=== PATIENT | female | born 1970 | race Caucasian/White ===

== ENCOUNTER → 2020-06-13 10:18 | Outpatient (CLI) | payer OTHER, SELFPAY ==
[2020-06-13 23:58] LABS: SARS-CoV-2 RNA PCR Positive
== END ==
PROVIDERS: PCP Family Medicine; Visit Provider Family Medicine
DX: U07.1 COVID-19 (principal)
CPT/HCPCS: C9803; U0003; U0005

== ENCOUNTER → 2020-07-09 11:55 | Outpatient (CLI) | payer OTHER, SELFPAY ==
--- NOTE | ~2020-07-09 | CT_ITS ---
EXAMINATION: CT brain wo con DATE: 07/09/2020 12:06 INDICATION: Headache. TECHNIQUE: Computed tomography (CT) of the head was performed without intravenous contrast. The mA wa s adjusted according to patient size. Iterative reconstruction technique was employed. The dose-lengt h product was 524.62 mGy-cm. COMPARISON: None FINDINGS: There is no intracranial hemorrhage, acute infarction, or abnormal intracranial mass lesion . The ventricles are normal in size. There is mild mucosal thickening in the paranasal sinuses. The o rbits are normal. The mastoid air cells are normal. IMPRESSION: 1. Normal brain. Reviewed, dictated and finalized at location B. IMPRESSION: 1. Normal brain.
== END ==
PROVIDERS: Visit Provider Family Medicine
DX: R51.9 Headache, unspecified (principal)
CPT/HCPCS: 70450

== ENCOUNTER → 2021-08-31 08:26 | Outpatient (CLI) | payer OTHER, SELFPAY ==
--- NOTE | ~2021-08-31 | MM_ITS ---
EXAMINATION: MM screening [facility] BI w dar HISTORY: Screening TECHNIQUE: Craniocaudal and mediolateral oblique 3-D tomosynthesis images were obtained and synthetic 2-D images were generated. CAD analysis was submitted and interpreted. COMPARISON: 12/03/2018 BREAST PARENCHYMAL COMPOSITION: There are scattered areas of fibroglandular density. FINDINGS: There is no evidence of suspicious mass, calcification, or architectural distortion to sugg est malignancy in either breast. There has been no suspicious interval change. IMPRESSION: 1. No mammographic evidence of malignancy. 2. Recommend routine screening mammography in one year. BI-RADS Category 1: Negative Reviewed, dictated and finalized at location A.
== END ==
PROVIDERS: PCP Obstetrics & Gynecology Gynecology; Visit Provider Obstetrics & Gynecology Gynecology
DX: Z12.31 Encounter for screening mammogram for malignant neoplasm of breast (principal)
CPT/HCPCS: 77063; 77067

== ENCOUNTER → 2021-11-09 07:24 | Outpatient (CLI) | payer OTHER, SELFPAY ==
--- NOTE | ~2021-11-09 | US_ITS ---
EXAMINATION: US transvaginal DATE: 11/09/2021 07:54 INDICATION: Endometrial hyperplasia, unspecified. Evaluate endometrial stripe. TECHNIQUE: Multiple transvaginal sonographic images of the pelvis were obtained. COMPARISON: CT abdomen and pelvis 11/17/2018 FINDINGS: Uterus: 7.5 x 3.9 x 3.2 cm. Endometrial complex measures 0.7 cm. Right Ovary: Not visualized. No adnexal mass. Left Ovary: Not visualized. No adnexal mass. There is no free fluid in the pelvis. IMPRESSION: Normal sonographic appearance of the endometrial stripe. Nonvisualization of the bilater al ovaries. Reviewed, dictated and finalized at location K. IMPRESSION: Normal sonographic appearance of the endometrial stripe. Nonvisual ization of the bilateral ovaries.
== END ==
PROVIDERS: PCP Family Medicine; Visit Provider Obstetrics & Gynecology Gynecology
DX: N85.00 Endometrial hyperplasia, unspecified (principal)
CPT/HCPCS: 76830

== ENCOUNTER 2022-05-22 08:00 | Outpatient (NON) | payer OTHER, SELFPAY | END 2022-05-22 08:01 | disposition home or self-care (01) | LOC: ANHLAB 05-23 09:00 | PROVIDERS: PCP Family Medicine; Visit Provider Internal Medicine Gastroenterology | DX: D12.5 Benign neoplasm of sigmoid colon (principal) | CPT/HCPCS: 88305 ==

== ENCOUNTER 2022-05-22 10:17 | Day surgery (SDC) | payer OTHER, SELFPAY ==
[2021-10-22 08:45] VITALS: BMI 33.7
[2022-03-06 11:31] VITALS: BMI 31.2
[2022-05-12 14:17] VITALS: BMI 31.6
--- NOTE | 2022-05-21 16:44 | PM.HPGS ---
History of Present Illness History of Present Illness Consent: Risks, benefits, and alternatives have been discussed and questions answered. Patient agrees to proceed with procedure. Chief complaint: Neoplasm Screening Narrative: Delia Garner is a 52 year old female Referred for colon cancer screening. Review of Systems Review of Systems: All systems reviewed & are unremarkable except as noted in HPI and below PMFSH Past Medical History Medical History Acute bronchitis Ankle pain, left Anxiety Arthritis BMI 31.0-31.9,adult Bronchitis Chronic depression Colitis COVID-19 (06/13/20) 02/12/22 COVID-19 (02/11/22) 2nd episode Depression Encounter for screening colonoscopy Encounter for wellness examination in adult Endometriosis GERD (gastroesophageal reflux disease) HLD (hyperlipidemia) Hypothyroidism Hypothyroidism, unspecified Mixed hyperlipidemia Total cholesterol 222, triglycerides 200, HDL 49, LDL 139 on 12/06/2021. Obesity (BMI 30.0-34.9) Osteoarthritis involving multiple joints on both sides of body Pulmonary embolism Seasonal allergic rhinitis Tension headache, chronic Type 2 diabetes mellitus with hyperglycemia (11/15/21) Hemoglobin A1c 9.1 on 11/15/2021. Fasting glucose 155 with urine microalbumin ratio normal at 6 on 12/06/2021. Worsening headaches Surgical History Surgical History History of appendectomy History of cholecystectomy Family History Family History Father Alcoholism Cancer Mother Diabetes mellitus Grandparent Hypertension Grandparent Hypertension Social History Social History Smoking status: Never smoker Alcohol intake: never Alcohol use details: wine very rarely Substance use: never Substance use type: does not use Lack of Transportation: No Lack of Food: Never True Current Housing: I Have Housing Concerned About Future Housing: No Difficulty Paying Gas/Electric Bills: No Difficulty Paying for Meds: No Currently Unemployed: No Education: High School Diploma/GED Difficulty w/ Childcare or Family Care: No Living arrangements: with family Gender identity (if verbalized by the patient): Female Spiritual care concerns: No Meds Home Medications and Allergies Home Medications Medication Instructions Recorded Confirmed Type fluoxetine 40 mg capsule 40 mg PO DAILY 03/14/19 05/22/22 History levothyroxine 150 mcg tablet 150 mcg PO DAILY 03/14/19 05/22/22 History metformin 500 mg tablet,extended 1,000 mg PO BID #120 tabs 11/28/21 05/22/22 Rx release 24 hr cholecalciferol (vitamin D3) 125 125 mcg PO DAILY 03/03/22 05/22/22 History mcg (5,000 unit) capsule progesterone micronized 200 mg 200 mg DAILY 03/06/22 05/22/22 History capsule Allergies Allergy/AdvReac Type Severity Reaction Status Date / Time Penicillins Allergy Mild rash Verified 05/22/22 10:45 amoxicillin Allergy Unknown Rash Verified 05/22/22 10:45 erythromycin base Allergy Unknown Rash Verified 05/22/22 10:45 ERYTHROMYCIN ETHYLSUCCINATE Allergy Mild Rash Uncoded 05/22/22 10:45 (Generic Allergy) Exam Const: General: alert Orientation/consciousness: patient oriented x3 Resp: Auscultation: clear to auscultation bilaterally Cardio: Rhythm: regular rhythm GI: GI Palp: Yes Soft to palpation and No Tenderness to palpation present (GI) Neuro: General: patient oriented x3 Assessment and Plan Assessment and plan (1) Encounter for screening colonoscopy: Code(s): Z12.11 - Encounter for screening for malignant neoplasm of colon Status: Acute Assessment and Plan: Colonoscopy with possible biopsy or polypectomy or cautery or injection of substances.
[2022-05-22 10:45] VITALS: BP 144/83; PULSE 96; RESP 20; TEMP 36.8; O2SAT 99
[2022-05-22 11:04] LABS: Glucose Point of Care 184 mg/dl (65-105)
--- NOTE | 2022-05-22 11:58 | WPDANESEPPF ---
Anes - Initial Pre Proc Eval Procedure: Operation Date: 05/22/22 12:00 Proposed Procedures p Screening Colonoscopy - Chapito Bennett MD Date/Time: 05/22/22 11:58 Surgeon: Chapito Bennett MD Pre Op Diagnosis: Neoplasm Screening Patient Data Age: 52 Gender: F Height: 1.6 m Weight: 78.1 kg Allergies Allergy/AdvReac Type Severity Reaction Status Date / Time Penicillins Allergy Mild rash Verified 05/22/22 10:45 amoxicillin Allergy Unknown Rash Verified 05/22/22 10:45 erythromycin base Allergy Unknown Rash Verified 05/22/22 10:45 ERYTHROMYCIN ETHYLSUCCINATE Allergy Mild Rash Uncoded 05/22/22 10:45 (Generic Allergy) Home Medications Medication Instructions Recorded Confirmed Type fluoxetine 40 mg capsule 40 mg PO DAILY 03/14/19 05/22/22 History levothyroxine 150 mcg tablet 150 mcg PO DAILY 03/14/19 05/22/22 History metformin 500 mg tablet,extended 1,000 mg PO BID #120 tabs 11/28/21 05/22/22 Rx release 24 hr cholecalciferol (vitamin D3) 125 125 mcg PO DAILY 03/03/22 05/22/22 History mcg (5,000 unit) capsule progesterone micronized 200 mg 200 mg DAILY 03/06/22 05/22/22 History capsule Laboratory Tests 05/22/22 10:58 POC Capillary Glucose 184 mg/dl H mg/dl (65-105) Patient hx anesthesia problems: none Family hx anesthesia problems: none Results Review: All pre-operative results and documents have been reviewed as part of the pre-operative evaluation. [facility] Past Medical History Medical History Acute bronchitis Ankle pain, left Anxiety Arthritis BMI 31.0-31.9,adult Bronchitis Chronic depression Colitis COVID-19 (06/13/20) 02/12/22 COVID-19 (02/11/22) 2nd episode Depression Encounter for screening colonoscopy Encounter for wellness examination in adult Endometriosis GERD (gastroesophageal reflux disease) HLD (hyperlipidemia) Hypothyroidism Hypothyroidism, unspecified Mixed hyperlipidemia Total cholesterol 222, triglycerides 200, HDL 49, LDL 139 on 12/06/2021. Obesity (BMI 30.0-34.9) Osteoarthritis involving multiple joints on both sides of body Pulmonary embolism Seasonal allergic rhinitis Tension headache, chronic Type 2 diabetes mellitus with hyperglycemia (11/15/21) Hemoglobin A1c 9.1 on 11/15/2021. Fasting glucose 155 with urine microalbumin ratio normal at 6 on 12/06/2021. Worsening headaches Surgical History Surgical History History of appendectomy History of cholecystectomy Family History Family History Father Alcoholism Cancer Mother Diabetes mellitus Grandparent Hypertension Grandparent Hypertension Social History Social History Smoking status: Never smoker Alcohol intake: never Alcohol use details: wine very rarely Substance use: never Substance use type: does not use Lack of Transportation: No Lack of Food: Never True Current Housing: I Have Housing Concerned About Future Housing: No Difficulty Paying Gas/Electric Bills: No Difficulty Paying for Meds: No Currently Unemployed: No Education: High School Diploma/GED Difficulty w/ Childcare or Family Care: No Living arrangements: with family Gender identity (if verbalized by the patient): Female Spiritual care concerns: No Anes - Eval Final PreProcedure Day of Procedure 05/22/22 11:58 Patient weight: obese Heart: regular rate and rhythm Lungs: clear to auscultation Airway: Mallampati scale class II Neurological: alert and oriented Last oral intake: >/= 8 hours ASA classification: III Emergent: no Anesthetic plan: proceed Anesthesia type and monitoring: general GIVS and standard monitoring Results Review: All pre-operative results and documents have been reviewed as part of the pre-operative evaluation.
[2022-05-22] MEDS: LACTATED RINGERS 1,000 ML 150 ML IV CONT (12:00)
[2022-05-22 12:23] VITALS: BP 119/76; PULSE 80; RESP 16; O2SAT 96
[2022-05-22 12:33] VITALS: BP 125/73; PULSE 66; RESP 14; O2SAT 98
--- NOTE | 2022-05-22 13:27 | WPDANESPN ---
Anes - Prog Note Post-Op Date/Time: 05/22/22 13:27 Cardiovascular status: normal Respiratory status: normal Airway patency: baseline Mental status: baseline Post-Op hydration status: normal Vital Signs: Last Vital Signs Temp 36.8 C 05/22/22 10:45 Pulse 66 05/22/22 12:33 Resp 14 05/22/22 12:33 BP 125/73 05/22/22 12:33 Pulse Ox 98 05/22/22 12:33 O2 Del Method Room Air 05/22/22 12:33 Pain Score (VAS): 0 I/O: Intake & Output 05/21/22 05/22/22 05/22/22 23:59 07:59 15:59 Intake Total 600 Balance 600 05/22/22 10:58 POC Capillary Glucose 184 H Patient Feedback: Patient satisfied with anesthetic care.
== END 2022-05-22 13:05 | disposition home or self-care (01) ==
PROVIDERS: PCP Family Medicine; Visit Provider Internal Medicine Gastroenterology
PROC: 0DJD8ZZ Inspection of Lower Intestinal Tract, Via Natural or Artificial Opening Endoscopic (ICD-10-PCS; CPT 45378; principal; 2022-05-22 12:00)
DX: Z12.11 Encounter for screening for malignant neoplasm of colon (principal)
CPT/HCPCS: 45385

== ENCOUNTER 2022-08-04 15:18 | Outpatient (CLI) | payer OTHER, SELFPAY ==
--- NOTE | 2022-08-04 16:11 | ECG_ITS ---
Measurements Intervals [place] Rate: 83 P: 26 HI: 154 QRS: 56 QRSD: 94 T: 71 QT: 374 QTc: 440 Interpretive Statements SINUS RHYTHM NORMAL ECG COMPARED TO ECG 03/14/2019 02:47:55 NO SIGNIFICANT CHANGES Electronically Signed On 08-04-2022 20:26:36 CDT by Shakeel Shaw D.O.
== END 2022-08-04 15:19 | disposition home or self-care (01) ==
LOC: ANHCARD 15:20
PROVIDERS: PCP Family Medicine; Visit Provider Nurse Practitioner Family
DX: E03.9 Hypothyroidism, unspecified (principal); R07.9 Chest pain, unspecified; R42 Dizziness and giddiness
CPT/HCPCS: 93005

== ENCOUNTER → 2022-12-08 17:43 | Outpatient (CLI) | payer OTHER, SELFPAY ==
--- NOTE | ~2022-12-08 | XR_ITS ---
Right Knee Technique: AP, lateral, and oblique views were obtained. Clinical History: Pain Findings: No fracture or dislocation is seen. Osseous alignment is anatomic. Joint spaces are preserv ed without degenerative or erosive change. Soft tissues are unremarkable. No joint effusion is seen. Impression: Unremarkable right knee radiographs. Reviewed, dictated and finalized at location . Impression: Unremarkable right knee radiographs.
--- NOTE | ~2022-12-08 | XR_ITS ---
Left ankle Technique: AP, oblique, and lateral views were obtained. Clinical History: Pain Findings: No acute fracture or dislocation is seen. There are 2 orthopedic screws in the distal tibia , as well as an orthopedic roque within the distal fibula.. There is probable mild degenerative change of the tibiotalar joint, but alignment overall at the ankle mortise is anatomic. Soft tissues are ot herwise unremarkable. Impression: No acute fracture or dislocation. Prior orthopedic surgery at the distal tibia and distal fibula, as detailed above. Mild degenerative change at the tibiotalar joint, possibly posttraumatic in nature. Reviewed, dictated and finalized at location M. Impression: No acute fracture or dislocation. Prior orthopedic surgery at the distal tibia and distal fibula, as detailed abo ve. Mild degenerative change at the tibiotalar joint, possibly posttraumatic in mac ure.
== END ==
PROVIDERS: PCP Family Medicine; Visit Provider Family Medicine
DX: M25.572 Pain in left ankle and joints of left foot (principal); M25.561 Pain in right knee; G89.29 Other chronic pain
CPT/HCPCS: 73564; 73610

== ENCOUNTER → 2022-12-13 08:16 | Outpatient (CLI) | payer OTHER, SELFPAY ==
--- NOTE | ~2022-12-13 | US_ITS ---
EXAMINATION: US transvaginal DATE: 12/13/2022 08:41 INDICATION: Postmenopausal bleeding Comparison:Ultrasound dated 11/09/2021 TECHNIQUE: Multiple transabdominal and endovaginal sonographic images of the pelvis performed. FINDINGS: The uterus measures 5.7 x 2.9 x 3 cm. The endometrial complex measures 4.4 mm. The ovaries are not visualized. There is no free fluid in the pelvis. There are no abnormal masses seen on either side. IMPRESSION: 1. Thickened endomtrial complex. The differential diagnosis includes endometrial hyperplasia, polyp a nd carcinoma. Biopsy is recommended. Reviewed, dictated and finalized at location A. IMPRESSION: 1. Thickened endomtrial complex. The differential diagnosis includes endometria l hyperplasia, polyp and carcinoma. Biopsy is recommended.
== END ==
PROVIDERS: PCP Obstetrics & Gynecology Gynecology; Visit Provider Obstetrics & Gynecology Gynecology
DX: N95.0 Postmenopausal bleeding (principal)
CPT/HCPCS: 76830

== ENCOUNTER → 2023-03-14 11:25 | Outpatient (CLI) | payer OTHER, SELFPAY ==
--- NOTE | ~2023-03-14 | MM_ITS ---
EXAMINATION: MM screening [facility] BI w dar HISTORY: Screening mammogram TECHNIQUE: Craniocaudal and mediolateral oblique 3-D tomosynthesis images were obtained and synthetic 2-D images were generated. CAD analysis was submitted and interpreted. COMPARISON: 08/31/2021, 12/03/2018 bilateral screening mammogram examinations BREAST PARENCHYMAL COMPOSITION: There are scattered areas of fibroglandular density. FINDINGS: There is no evidence of suspicious mass, calcification, or architectural distortion to sugg est malignancy in either breast. There has been no suspicious interval change. IMPRESSION: 1. No mammographic evidence of malignancy. 2. Recommend routine screening mammography in one year. BI-RADS Category 1: Negative Reviewed, dictated and finalized at location A. SETTER
== END ==
PROVIDERS: PCP Nurse Practitioner; Visit Provider Nurse Practitioner
DX: Z12.31 Encounter for screening mammogram for malignant neoplasm of breast (principal)
CPT/HCPCS: 77063; 77067

== ENCOUNTER 2024-05-28 08:01 | Outpatient (CLI) | payer OTHER, SELFPAY ==
--- NOTE | ~2024-05-28 | MM_ITS ---
EXAMINATION: MM screening [facility] BI w dar HISTORY: Screening mammogram TECHNIQUE: Craniocaudal and mediolateral oblique 3-D tomosynthesis images were obtained and synthetic 2-D images were generated. CAD analysis was submitted and interpreted. COMPARISON: 03/14/2023, 08/31/2021, 12/03/2018 BREAST PARENCHYMAL COMPOSITION:Not Dense. There are scattered areas of fibroglandular density. FINDINGS: No suspicious mass, calcification, or architectural distortion are identified in either roland ast to suggest malignancy. There has been no suspicious interval change. IMPRESSION: No mammographic evidence of malignancy. Recommend routine screening mammography in one year. BI-RADS Category 1: Negative Reviewed, dictated and finalized at location .
== END 2024-05-28 08:02 | disposition home or self-care (01) ==
LOC: MICIMG 08:02
PROVIDERS: PCP Nurse Practitioner; Visit Provider Nurse Practitioner
DX: Z12.31 Encounter for screening mammogram for malignant neoplasm of breast (principal)
CPT/HCPCS: 77063; 77067